=== PATIENT | male | born 1980 | race Caucasian/White ===

== ENCOUNTER 2023-05-21 22:35 | Outpatient (CLI) | payer OTHER, SELFPAY | END 2023-05-21 22:36 | disposition home or self-care (01) | LOC: AMB 05-24 05:45 | PROVIDERS: Visit Provider Emergency Medicine | DX: R06.09 Other forms of dyspnea (principal); F41.0 Panic disorder [episodic paroxysmal anxiety] | CPT/HCPCS: A0425; A0427 ==

== ENCOUNTER 2023-11-15 01:23 | Outpatient (CLI) | payer OTHER, SELFPAY | END 2023-11-15 01:24 | disposition home or self-care (01) | LOC: AMB 11-28 23:17 | PROVIDERS: Visit Provider Family Medicine | DX: F41.0 Panic disorder [episodic paroxysmal anxiety] (principal) | CPT/HCPCS: A0998 ==